=== PATIENT | male | born 2000 | race Caucasian/White ===

== ENCOUNTER 2020-05-17 15:35 | Emergency (ER) | payer BC, SELFPAY ==
[2020-05-17 15:45] VITALS: BP 135/75; PULSE 95; RESP 20; TEMP 36.6; O2SAT 100
--- NOTE | 2020-05-17 15:58 | ED.URI ---
HPI - URI/Sore Throat General Chief Complaint: Upper Respiratory Infection Stated Complaint: nasal congestion/sinus issues Time Seen by Provider: 05/17/20 15:45 Source: patient and RN notes reviewed Mode of arrival: ambulatory Limitations: no limitations History of Present Illness HPI Narrative: Patient presents today complaining of nasal congestion and inability to breathe out of the right side of his nose completely for the last 7 months. Reports clear to green nasal drainage 1-2 times daily out of both sides. At various times during the last 7 months he has tried saline nasal spray, ibuprofen, nasal decongestants without relief. He has tried none in the last week. He has not sought treatment prior to today. Denies any additional symptoms to include fever, sore throat, ear pain, cough MD elicited complaint: nasal congestion Related Data Allergies Allergy/AdvReac Type Severity Reaction Status Date / Time No Known Allergies Allergy Verified 05/17/20 15:48 Review of Systems Review of Systems: Narrative: CONSTITUTIONAL: Denies body aches, fever, chills, or sweats. EYES: Denies visual changes, redness, or discharge. ENT: Denies rhinorrhea, sore throat, or otalgia.+ Nasal congestion CARDIOVASCULAR: Denies chest pain, palpitations, or edema. RESPIRATORY: Denies cough or dyspnea. GASTROINTESTINAL: Denies abdominal pain, nausea, vomiting, or diarrhea. GENITOURINARY: Denies dysuria or hematuria. SKIN: Denies rash, itching, or wounds. MUSCULOSKELETAL: Denies back pain, joint pain, or myalgia. NEUROLOGIC: Denies headache, numbness, tingling, or weakness. PSYCH: Denies depression or anxiety. PMFSH Comments At time of signature, I have reviewed and agree with nursing past medical, surgical, social and family history unless otherwise noted. Please see nursing chart for further information. There is no relevant family history pertinent to the presenting complaint Exam Narrative: Exam Narrative: GENERAL: Well-appearing, well-nourished, and in no acute distress. HEAD: Normocephalic, atraumatic. EYES: EOMI. No redness or drainage. Conjunctivae normal. ENT: Mucous membranes pink and moist. Nares congested. Right nare is not patent. Nasal turbinates are pink and edematous with clear drainage. TMs normal bilaterally. Throat normal. Uvula midline. NECK: Normal AROM. Supple. No lymphadenopathy. CHEST: No respiratory distress. Clear to auscultation. HEART: Regular rate and rhythm. No murmur appreciated. Normal peripheral pulses. EXTREMITIES: Normal range of motion. No edema. SKIN: Warm, dry, no rash. Capillary refill normal. Normal skin turgor. NEURO: No focal deficits. Alert and oriented x3. Gait steady. PSYCH: Normal affect. No signs of depression or anxiety. Course Vital Signs Vital signs: Vital Signs Temperature 97.9 F 05/17/20 15:45 Pulse Rate 95 05/17/20 15:45 Respiratory Rate 05/17/20 15:45 Blood Pressure 135/75 05/17/20 15:45 Pulse Oximetry 100 05/17/20 15:45 Temperature 97.9 F 05/17/20 15:45 Pulse Rate 95 05/17/20 15:45 Respiratory Rate 05/17/20 15:45 Blood Pressure 135/75 05/17/20 15:45 Pulse Oximetry 100 05/17/20 15:45 Reviewed. Pt has been instructed to follow up with his PCP regarding his elevated blood pressure today. MDM - URI/Sore Throat Differential Diagnosis Differential diagnosis: Likely upper respiratory infection, otitis media and sinusitis Critical Care Time Critical Care Time Critical Care Time: No Discharge Plan Discharge Clinical Impression: Sinusitis Qualifiers: Sinusitis location: maxillary Chronicity: chronic Qualified Code(s): J32.0 - Chronic maxillary sinusitis Patient Disposition: Home, Self-Care Condition: Stable Instructions: Antibiotic Form, Sinusitis (ED) Additional Instructions: Take the Augmentin as prescribed until gone. Also start the steroid nasal spray such as Flonase and use as directed. Follow-up with your PCP or an
== END 2020-05-17 16:08 | disposition home or self-care (01) ==
PROVIDERS: Emergency Provider Nurse Practitioner
DX: J32.0 Chronic maxillary sinusitis (principal)
CPT/HCPCS: 99213; G0463

== ENCOUNTER 2020-07-06 13:31 | Outpatient (CLI) | payer BC, SELFPAY ==
--- NOTE | ~2020-07-06 | CT_ITS ---
EXAMINATION: CT sinus wo con DATE: 07/06/2020 14:05 INDICATION: Neoplasm of paranasal sinus. TECHNIQUE: Computed tomography (CT) of the paranasal sinuses was performed without intravenous contra st. Iterative reconstruction technique was employed. The dose-length product was 296.82 mGy-cm. COMPARISON: None FINDINGS: There is a mass centered in the right pterygopalatine fossa with involvement of the right e thmoid and sphenoid sinuses and sphenoid bone, chronic anterior displacement and remodeling of the po sterior wall of the right maxillary sinus, and leftward displacement and remodeling of the nasal sept um. The mass protrudes into the nasopharynx. The mass is not well defined without intravenous contras t but measures approximately 5.8 x 4.4 x 3.8 cm. IMPRESSION: 1. 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 Consider contrast-enhanced CT for better delineation. Reviewed, dictated and finalized at location A. ING PAINTER IMPRESSION: 1. 5.8 cm mass centered in the right pterygopalatine fossa, most likely a ethel ile nasopharyngeal angiofibroma. Consider contrast-enhanced CT for better delin eation.
== END 2020-07-06 13:32 | disposition home or self-care (01) ==
PROVIDERS: Visit Provider Otolaryngology
DX: D49.1 Neoplasm of unspecified behavior of respiratory system (principal); R09.81 Nasal congestion
CPT/HCPCS: 70486

== ENCOUNTER 2020-08-17 14:56 | Outpatient (CLI) | payer BC, SELFPAY ==
--- NOTE | ~2020-08-17 | MR_ITS ---
EXAMINATION: MR orbits face neck wo/w con DATE: 08/17/2020 16:20 INDICATION: Juvenile nasopharyngeal angiofibroma. TECHNIQUE: Magnetic resonance imaging (MRI) of the face was performed without and with 17 mL MultiHan ce intravenous contrast. Sequences included axial and coronal T1-weighted FSE and T2-weighted FS FSE, axial T1-weighted FS FSE, sagittal T1-weighted FSE and STIR FSE, axial T2-weighted FSE and T1-weight ed SPGR, and postcontrast axial, coronal, and sagittal T1-weighted FS FSE. COMPARISON: Sinuses CT 07/06/2020 FINDINGS: There is a 6.4 x 2.9 x 3.7 cm enhancing mass centered in the right pterygopalatine fossa. T he mass demonstrates heterogeneously decreased T2 weighted signal intensity and intermediate T1-weigh jewel signal intensity. The mass involves the right ethmoid and sphenoid sinuses and sphenoid bone and right nasal cavity. There is anterior displacement of the posterior wall of the right maxillary sinus . There is leftward displacement of the nasal septum. The mass protrudes into the nasopharynx. There is mild mucosal thickening in the ethmoid sinuses. The orbits are normal. IMPRESSION: 1. 6.4 cm mass centered in the right pterygopalatine fossa, consistent with a juvenile nasopharyngeal angiofibroma. Reviewed, dictated and finalized at location A. TIC BLOCK BOILER RELINER IMPRESSION: 1. 6.4 cm mass centered in the right pterygopalatine fossa, consistent with a j uvenile nasopharyngeal angiofibroma.
[2020-08-17 15:31] LABS: Estimated Glomerular Filt Rate > 60
== END 2020-08-17 14:57 | disposition home or self-care (01) ==
LOC: ANHIMG 15:01
DX: D10.6 Benign neoplasm of nasopharynx (principal)
CPT/HCPCS: 70543; A9577